=== PATIENT | male | born 2000 | race Caucasian/White ===

== ENCOUNTER 2021-12-11 07:42 | Outpatient (CLI) | payer BC, SELFPAY ==
--- NOTE | ~2021-12-11 | MR_ITS ---
EXAMINATION: MR wrist LT wo con DATE: 12/11/2021 09:07 INDICATION: Left wrist pain. TECHNIQUE: Magnetic resonance imaging (MRI) of the wrist was performed without intravenous contrast. Sequences performed include coronal T1-weighted FSE, coronal PD-weighted FS FSE, axial PD-weighted FS FSE, axial PD-weighted FSE, sagittal PD-weighted FSE, and sagittal PD-weighted FS FSE. COMPARISON: None FINDINGS: Intrinsic ligaments: There is a full-thickness tear of the proximal (membranous) component of scapholunate ligament. Lunot riquetral ligament is normal. Triangular fibrocartilage complex (TFCC): Triangular fibrocartilage is intact. Extensor wrist: Extensor tendons are normal. Flexor wrist: There is mild tendinopathy of some of the flexor tendons. Median nerve demonstrates increased signal intensity in the carpal tunnel. There is a heterogeneous mass along the expected course of medial ner ve in the distal forearm, consistent with hematoma. Guyon's canal: Ulnar nerve is normal. Bones/other: There is a fracture of distal radius with fixation with an intramedullary ramírez that projects between t he second compartment extensor tendons in the dorsum of the wrist. There is a subcutaneous mass in th e dorsal distal forearm, consistent with hematoma. There is increased T2-weighted signal intensity in the opponens pollicis muscle, abductor pollicis brevis muscle, and pronator quadratus muscle, consis tent with mild strains (grade 1). IMPRESSION: 1. Fracture of distal radius with internal fixation. 2. Hematomas in the distal forearm including in the expected area of the median nerve. 3. Mild strains of opponens pollicis muscle, abductor pollicis brevis muscle, and pronator quadratus muscle. 4. Tendinopathy of the flexor tendons in carpal tunnel. Reviewed, dictated and finalized at location A. IMPRESSION: 1. Fracture of distal radius with internal fixation. 2. Hematomas in the distal forearm including in the expected area of the median nerve. 3. Mild strains of opponens pollicis muscle, abductor pollicis brevis muscle, a nd pronator quadratus muscle. 4. Tendinopathy of the flexor tendons in carpal tunnel.
== END 2021-12-11 07:43 | disposition home or self-care (01) ==
PROVIDERS: PCP Pediatrics
DX: S52.502A Unspecified fracture of the lower end of left radius, initial encounter for closed fracture (principal); X58.XXXA Exposure to other specified factors, initial encounter
CPT/HCPCS: 73221